=== PATIENT | female | born 1995 | race Hispanic/Latino ===

== ENCOUNTER 2017-01-19 04:55 | Emergency (ER) | payer OTHER ==
[~2017-01-19] VITALS: Ht 157.5 cm; Wt 70.5 kg
[2017-01-19 05:00] VITALS: BP 113/77; PULSE 83; RESP 18; O2SAT 99
--- NOTE | 2017-01-19 05:10 | ED.REPORT ---
HPI-Abd Pain F Under 40 Date of Service Jan 19, 2017 ED Provider: Dr. Jansen 21 y/o female with a hx of ovarian cysts presents to the ED complaining of right sided abdominal pain that woke her up an hour ago. She describes it as a constant throbbing pain that radiates to her right flank. Her current sx are not similar to the time she was diagnosed with ovarian cyst. Associated sx include dysuria. She denies pain before going to bed yesterday. She also denies diarrhea, constipation and cough. UA showed some blood but the pt states she is just starting her period. Nursing Notes Stated Complaint: ABDOMINAL PAIN Chief Complaint: Female Abdominal Pain Nursing Notes Reviewed: Yes Allergies: Coded Allergies: No Known Allergies (Verified Allergy, Unknown, 01/19/17) No Active Prescriptions or Reported Meds General Time Seen by MD: 05:09 Chief Complaint Abdominal pain Hx Obtained From: Patient Arrived By: Walk-in Sudden in Onset?: Yes Onset Occurred: Just prior to arrival Symptom Duration: Since onset Location: : Flank right: RLQ Quality: Throbbing Radiation: : Flank right Severity: Current: Moderate Severity: Maximum: Moderate Recent Healthcare: No recent doctor visit Similar Sx Previous: Yes Past Medical History Past Medical History Notes: Seen in ED 11/2014 - Abd pain, unknown etiology Past Medical History Ovarian cyst Past Surgical History denies Smoking History Never Smoker Social History Alcohol Use: Denies alcohol use Drug Use: Denies drug use Other Social History: Local resident Ambulatory Status Independent Review of Systems Respiratory: Denies: Non-productive cough GI: Reports: Abdominal pain, Denies: Constipation, Diarrhea Female: Reports: Dysuria, Flank pain (right) Complete sys rev & neg: except as marked. Physical Exam Initial Vital Signs Vital Signs (First) Date Time Temp Pulse Resp B/P Pulse Ox O2 Delivery O2 Flow Rate FiO2 01/19/17 05:00 36.7 83 18 113/77 99 Room Air Initial VS: Reviewed Head / Eyes: Atraumatic, Normocephalic Neck: Supple, Non-tender, Full range of motion Extremities: Vascular intact, Neuro intact, No swelling, No tenderness Skin: Warm, Dry, No cyanosis Neurologic: Alert, Oriented, Nonfocal General/Constitutional: Awake, Alert Distress / Hydration: Positive: Distress moderate Behavior: Positive: Tearful (when abdoman is palpated) Respiratory / Chest: Atraumatic, Breath sounds NL, Breath sounds = bilat, No respiratory distress, No rales, No rhonchi, No wheezing Cardiovascular: Heart rate NL, Regular rhythm, Heart sounds NL, No gallop, No murmurs, No rubs Abdomen: Atraumatic, Soft, No guarding, No rebound, BS normoactive Tenderness/Guarding/Rebound: Positive: Tender RLQ... (Severe) Back: Atraumatic, Full range of motion, Painless range of motion Interpretation & Diagnostics Lab Results Interpretation Result Diagram: 01/19/17 0545 01/19/17 0545 Test 01/19/17 05:10 01/19/17 05:45 Urine Color Yellow (YELLOW) Urine Appearance Hazy (CLEAR,HAZY) Urine pH 6.0 (5.0-8.0) Urine Specific [place] 1.020 (1.003-1.035) Urine Protein Negativemg/dL (NEG,TRACE) Urine Glucose (UA) Negativemg/dL (NEGATIVE) Urine Ketones Negativemg/dL (NEGATIVE) Urine Occult Blood Trace (NEGATIVE) Urine Nitrite Negative (NEGATIVE) Urine Bilirubin Negative (NEGATIVE) Urine Urobilinogen Normalmg/dL (NORMAL) Urine Leukocyte Esterase Negative (NEGATIVE) Urine RBC 0-2/hpf (0-2) Urine WBC 0-5/hpf (0-5) Urine Epithelial Cells Few/hpf (NONE-MOD) Urine Crystals Amorphous urates (NONE Urine Bacteria Few/hpf (NONE-FEW) Urine Hyaline Casts None/lpf (NONE) Urine Granular Casts None seen (NONE SEEN) Urine Waxy Casts None seen (NONE SEEN) Urine Red Blood Cell Casts None seen (NONE SEEN) Urine White Blood Cell Casts None seen (NONE SEEN) Urine Mucus Present (None Seen) Urine Trichomonas None seen (NONE SEEN) Urine Yeast None (NONE SEEN) Urinalysis Comment None Urine Culture Reflexed Not indicated White Blood Count 11.6th/mm3 (3.8-10.1) Red Blood Count 4.65mil/mm3 (3.90-5.20) Hemoglobin 13.1g/dL (12.0-15.6) Hematocrit 39.7% (35.0-46.0) Mean Corpuscular Volume 85.4fL (81-100) Mean Corpuscular Hemoglobin 28.2pg (27.0-35.0) Mean Corpuscular Hemoglobin Concent 33.0% (32.0-37.0) Red Cell Distribution Width 13.7% (12.3-15.4) Platelet Count 221bil/L (150-400) Neutrophils (%) (Auto) 70.7% (40-74) Lymphocytes (%) (Auto) 20.4% (14-46) Monocytes (%) (Auto) 6.7% (4-12) Eosinophils (%) (Auto) 1.8% (0-5) Basophils (%) (Auto) 0.2% (0-3) Prothrombin Time 10.6sec (8.1-12.5) Prothromb Time International Ratio 0.99ratio Sodium Level 136mEq/L (134-144) Potassium Level 3.7mEq/L (3.5-5.2) Chloride Level 101mEq/L (97-108) Carbon Dioxide Level 21mmol/L (18-29) Blood Urea Nitrogen 13mg/dL (6-20) Creatinine 0.51mg/dL (0.57-1.00) Estimat Glomerular Filtration Rate 216mL/min (>59) Glucose Level 103mg/dL (60-99) Lactic Acid Level 1.0mmol/L (0.4-2.0) Calcium Level 9.5mg/dL (8.5-10.1) Magnesium Level 1.7mg/dL (1.6-2.6) Total Bilirubin 0.3mg/dL (0.0-1.2) Aspartate Amino Transf (AST/SGOT) 40U/L (0-50) Alanine Aminotransferase (ALT/SGPT) 18U/L (0-32) Alkaline Phosphatase 67U/L (25-150) Total Protein 7.9g/dL (6.4-8.4) Albumin 4.3g/dL (3.4-5.0) Lipase 118U/L (13-60) Lab Results Interpretation: test = Negative Re-Eval/Medical Decision Med Decision/Clinical Course Med Decision/Clinical Course: 21-year-old female with a benign past history apart from some ovarian cysts, presents with right lower quadrant abdominal pain different from any other she has ever had. Her exam is quite tender with near peritoneal reactivity to palpation, but normal bowel sounds. White count mildly elevated. Awaits ultrasound this morning and disposition per Dr. Rosendo Jansen. Luther's exam. Source of Hx: Old records Counseled Regarding: Diagnosis, Lab results Discharge & Departure Shift Change Sign-Out Patient Care Transferred: Yes Discussed Complaint(s): Yes Laboratory Evaluation: Ordered, not yet done Primary Impression: Abdominal pain Abdominal location: right lower quadrant Qualified Code: R10.31 - Right lower quadrant pain Disposition: Home Discharge Condition All VS Reviewed: Yes Condition: Stable Referrals: NOPCP (PCP) Care Transferred to: Dr. Conteh Care Transferred at: 06:00 Scribe Attestation Portions of this note were transcribed by Sawyer Pruitt. I, , personally performed the history, physical exam and medical decision- making;I reviewed and confirmed the accuracy of the information in the transcribed note. Signed by Kasey Wright. 01/19/17 0600 Franklin Jansen MD Jan 19, 2017 05:10 Sawyer Pruitt Jan 19, 2017 05:18 DIDIER GARCIA Jan 19, 2017 05:57
[2017-01-19] MEDS ORDERED: 0.9% Sodium Chloride 1,000 ML IV ONE (05:21)
[2017-01-19] MEDS ORDERED: Ondansetron 2 mg/mL 2 mL Inj IVPUSH ONE (05:25)
[2017-01-19] MEDS ORDERED: Ketorolac 15 mg/mL Inj IVPUSH ONE (05:25)
[2017-01-19 05:34] LABS: APPEARANCE,URINE HAZY (CLEAR,HAZY); COLOR,URINE YELLOW (YELLOW); OCCULT BLOOD,URINE TRACE (NEGATIVE); UROBILINOGEN,URINE NORMAL (NORMAL)
[2017-01-19 05:53] LABS: BASOPHILS % (AUTO) 0.2 % (0-3); EOSINOPHILS % (AUTO) 1.8 % (0-5); MONOCYTES % (AUTO) 6.7 % (4-12); Mean Corpuscular Hemoglobin 28.2 pg (27.0-35.0); Mean Corpuscular Volume 85.4 fL (81-100); NEUTROPHILS % (AUTO) 70.7 % (40-74); Platelet Count 221 bil/L (150-400)
[2017-01-19 06:09] LABS: INR 0.99 ratio
[2017-01-19 06:16] LABS: Magnesium 1.7 mg/dL (1.6-2.6)
[2017-01-19 09:47] VITALS: BP 89/49; PULSE 66; RESP 18
[2017-01-19] MEDS ORDERED: IBUP800T28 PO (09:50)
[2017-01-19 10:03] VITALS: BP 102/62
--- NOTE | 2017-01-19 15:54 | DRSVH ---
PROCEDURE: US PELVIC SONOGRAM INDICATIONS: rlq pain r/o appy TECHNIQUE: Real-time transabdominal scanning was performed of the pelvic organs, with image documentation. COMPARISON: None. FINDINGS: Uterus: Uterus is normal in size at 7.0 x 4.3 x 5.8 cm. Endometrium measures 9 mm in combined thick ness. Ovaries: The ovaries measure 2.5 x 2.4 x 2.2 cm on the right and 2.8 x 2.3 x 2.7 cm on the left. No adnexal masses. Other: The appendix was not discretely identified. No free pelvic fluid. Limited scanning through the kidneys demonstrates no hydronephrosis. There is a round hypoechoic isoechoic left parapelvic le luci in the left kidney measuring up to 2.1 cm. IMPRESSION: 1. Appendix not discretely identified sonographically. 2. Round left parapelvic lesion in the left kidney demonstrated which is incompletely evaluated. Th e findings may represent a parapelvic complex cyst versus a mass. Recommend initial further evaluati on with a dedicated renal ultrasound study. Findings were discussed with Dr. Cale Conteh on 01/19/17 at 3:15 PM. Dictated by: Aiden Torres M.D. on 01/19/2017 at 15:48 Approved by: Aiden Torres M.D. on 01/19/2017 at 15:53
== END 2017-01-19 10:03 | disposition home or self-care (01) ==
LOC: SED 04:55
DX: N83.201 Unspecified ovarian cyst, right side (principal); R10.31 Right lower quadrant pain
CPT/HCPCS: 36415; 76856; 80053; 81000; 81025; 83605; 83690; 83735; 85025; 85610; 96361; 96374; 96375; 99285; J1885; J2405; J7030